=== PATIENT | female | born 1935 | race Caucasian/White ===

== ENCOUNTER 2016-02-28 09:22 | Emergency (ER) | payer MEDICARE ==
[~2016-02-28] VITALS: Ht 157.4 cm; Wt 108.9 kg
[~2016-02-28 09:22] MED LIST: AMBIEN10 MG PO; ATIVAN1 MG PO; AUGMENTIN 875875 MG PO; CALCIUM1 CAP PO; CELEXA10 MG PO; CIPRO250 MG PO; HYDR25T PO; IBU800 MG PO; LASIX40 MG PO; LIPITOR10 MG PO; PANTOPRAZOLE SO40 MG PO; POTASSIUM CHLO10 ME4 PO; PROTONIX40 MG PO; QUINAPRIL10 MG PO; TRAMADOL HCL50 MG PO; TYLENOL325 M2 PO; ULTRAM50 MG PO; VICODIN ES 7501 TAB PO; VITAMIN D5000 IU PO; Vicodin 5/500 505 MG PO; XARE20MG PO; ZESTRIL40 MG PO; ZITHROMAX Z PA250 MG PO; ZOFRAN ODT4 MG SL
[2016-02-28 10:11] LABS: BASO % 0.2 % (0.0-1.0); EOS # 0.2 10*3/uL (0.0-0.4); EOS % 3.2 % (1.0-4.0); HEMATOCRIT 31.3 % (37.0-47.0); HEMOGLOBIN 9.9 g/dl (12.0-16.0); LYMPH # 1.4 10*3/uL (1.3-4.4); MEAN CELL VOLUME 99.4 fl (81.0-99.0); MEAN CORPUSCULAR HGB 31.4 pg (27.0-31.0); MEAN CORPUSCULAR HGB CONC 31.6 g/dl (33.0-37.0); MEAN PLATELET VOLUME 8.7 fl (9.6-12.3); MONO # 0.5 10*3/uL (0.1-1.0); MONO % 8.2 % (3.0-9.0); NEUT # 3.8 10*3/uL (2.3-7.9); NEUT % 65.1 % (47.0-73.0); PLATELET COUNT AUTOMATED 200 10*3/uL (130-400); RED BLOOD COUNT 3.15 10*6/uL (4.10-5.10); RED CELL DISTRI WIDTH 14.2 % (0-14.5); WHITE BLOOD COUNT 5.9 10*3/uL (4.8-10.8)
[2016-02-28 10:25] LABS: POTASSIUM 4.7 mmol/L (3.5-5.1)
[2016-02-28 10:30] VITALS: BP 122/71
[2016-02-28] MEDS ORDERED: PROVENTIL0.09 MG/A1 INH (11:20)
[2016-02-28] MEDS ORDERED: ZITHROMAX250 MG PO (11:20)
[2016-02-28] MEDS ORDERED: ROBITUSSIN AC 110 ML PO (11:20)
== END 2016-02-28 11:27 | disposition home or self-care (01) ==
LOC: ED 09:22
PROVIDERS: Emergency Medicine
DX: J40 Bronchitis, not specified as acute or chronic (principal); M19.90 Unspecified osteoarthritis, unspecified site; Z90.49 Acquired absence of other specified parts of digestive tract; F41.9 Anxiety disorder, unspecified; I10 Essential (primary) hypertension; I50.9 Heart failure, unspecified; Z88.8 Allergy status to other drugs, medicaments and biological substances; Z87.891 Personal history of nicotine dependence; Z86.718 Personal history of other venous thrombosis and embolism

== ENCOUNTER 2016-10-29 13:09 | Inpatient (IN) | payer MEDICARE ==
[2016-10-29] VITALS (7 sets, daily range): BP systolic 84–153; BP diastolic 40–60
[~2016-10-29] VITALS: Ht 157.4 cm; Wt 101.8 kg
--- NOTE | ~2016-10-29 | CON ---
[place], [place] REPORT OF CONSULTATION NAME: [facility]AGA [id number] UNIT #: [id number] ROOM: 504 DOCTOR: BRETT FRAGARYLIECHARLOTTE BIRTHDATE: [birth year] DOS: GASTROENDOSCOPIC REPORT HISTORY OF PRESENT ILLNESS: An 81-year-old patient who has presented with chief complaint of not feeling well and being tired. She was admitted and she was found to have H and H of 10 and 33. She has been on Xarelto at home for DVT history. She had a chest x-ray, was normal. Comprehensive metabolic panel: BUN and creatinine of 30 and 1.4, GFR was 42. Electrolytes balanced. Liver function tests normal. Troponin within normal limit. Lactic acid 1.2, normal. Urinalysis, no activity was seen. She had a CT scan of the abdomen and pelvic done, stable postsurgical changes for colonic carcinoma without any acute findings, questionable wall thickening of the distal rectum posteriorly may correlate with rectal bleeding that she is expressing. No evidence of diverticulitis, small fat containing hiatal hernia noticed. PAST MEDICAL HISTORY: Associated with DVT, colonic CA, congestive heart failure, anxiety, DJD, obesity, hypertension, osteoarthritis. PAST SURGICAL HISTORY: Colon resection for history of colonic carcinoma. No chemo, no radiation history, cholecystectomy, tonsillectomy, adenoidectomy. SOCIAL HISTORY: Nonsmoker, nonalcohol consumer. FAMILY HISTORY: Noncontributory. ALLERGIES: METHYLPREDNISOLONE. MEDICATIONS: List has been reviewed. Xarelto was included that is on hold. REVIEW OF SYSTEMS: HEENT: Denies double vision, blurred vision. RESPIRATORY: Denies shortness of breath. CARDIOVASCULAR: Denies chest pain. DIGESTIVE SYSTEM: Colonic CA history and rectal bleed, now abnormal CT scan with the rectal thickening, concern. PHYSICAL EXAMINATION: VITAL SIGNS: Stable. HEENT: Head normocephalic, nontraumatic. Mouth and buccal mucosa benign. NECK: Supple, no thyromegaly, no cervical lymphadenopathy. CHEST: Symmetric anatomy, equal expansion. No wheeze, no rhonchi. HEART: Normal sinus rhythm, no gallop, no murmur. ABDOMEN: Obese, large, soft. No hepato-organomegaly. Bowel sounds present. EXTREMITIES: No cyanosis, no pedal edema. NEUROLOGIC: Alert, oriented to time, place and person. IMPRESSION: Blood in stool and episode of irregularity of bowel movement, hypotension. After evaluation with old history of hypertension, history of congestive heart failure, degenerative joint disease, borderline anemia, colonic [place], [place] REPORT OF CONSULTATION NAME: OSCAR ARTEAGA UNIT #: [id number] ROOM: [facility] DOCTOR: CORI WEST MD BIRTHDATE: [birth year] CA history without chemoradiation therapy. We are following up on and , tomorrow morning preps if vital signs stable and colonoscopy, EGD on Monday. OTHER ADJUNCTIVE DIAGNOSES: As outlined in paragraph past medical, surgical history. CORI WEST MD CM:CONSTR:REPORT OF CONSULTATION 1558 10/31/16 1933 interface
--- NOTE | ~2016-10-29 | O ---
[place], [place] OPERATIVE NOTE NAME: [id number] UNIT #: [id number] ROOM: 504 DOCTOR: CORI WEST MD BIRTHDATE: [birth year] DOS: GASTROENDOSCOPIC REPORT. HISTORY OF PRESENT ILLNESS: An 81-year-old patient who has presented with chief complaint of anemia, undergoing investigation. INDICATIONS: The patient with rectal bleed. The patient with history of colonic polyp carcinoma status post resection. PAST SURGICAL HISTORY: Cholecystectomy, tonsillectomy. SOCIAL HISTORY: Nonsmoker, nonalcohol consumer. She has stopped smoking. PAST MEDICAL HISTORY: Diastolic congestive heart failure, colon CA, hypertension, hypoglycemia, degenerative joint disease, anxiety. ALLERGIES: METHYLPREDNISOLONE. PROCEDURE: Today's procedure part of investigation is EGD and colonoscopy. PREMEDICATION: Versed and Diprivan. SCOPE: Olympus forward-viewing colonoscope 10L video. REPORT: After putting the patient in the left lateral position and after application of lubricant to the scope, the scope was introduced; thereafter, under direct visualization, advanced through the length of colon without difficulty. Base of the cecum explored. Evidence of surgical resection in this area was noticed. Suture lines were defined and photographed. No acute pathology in this area, no infiltration was noticed. Air was suctioned out, diverticulosis in the left side of the colon and scatteredly throughout the colon was documented. The patient tolerated the procedure well. Small hemorrhoids noticed. IMPRESSION: Small hemorrhoids, internal; diverticulosis and status post segmental resection of ascending colon at the cecal level with no infiltration. PLAN AND DISCUSSION: I am going to proceed with panendoscopy. [place], [place] OPERATIVE NOTE NAME: OSCAR ARTEAGA UNIT #: [id number] ROOM: 504 DOCTOR: CORI WEST MD BIRTHDATE: [birth year] CORI WEST MD CM:OPRECORD:OPERATIVE NOTE 1407 1433 CORI WEST MD 11/02/16 1933 interface
--- NOTE | ~2016-10-29 | O ---
[place], [place] OPERATIVE NOTE [id number] #: [id number] ROOM: 504 DOCTOR: CORI WEST MD BIRTHDATE: [birth year] DOS: 11/02/2016 GASTROENDOSCOPY REPORT. PROCEDURE: Today's procedure part of investigation of GI bleed is panendoscopy. PREMEDICATION: Versed and Diprivan. SCOPE: Olympus forward-viewing gastroscope Q10 video. REPORT: After putting the patient in the left lateral position and after application of lubricant to the scope, the scope was introduced. Thereafter, under direct visualization, I advanced through the length of the esophagus without difficulty. Hiatal hernia, small in size, approximately 2 cm was noticed. Gastritis of mild degree was seen; however, some degraded blood in the stomach was noticed. Duodenal bulb, second and third part within normal limit. The patient was gradually extubated and tolerated procedure well. IMPRESSION: Hiatal hernia, gastritis. PLAN AND DISCUSSION: Protonix 40 mg daily. Supportive management, otherwise regular diet. ACTIVITY: Ad don. CORI WEST MD CM:OPRECORD:OPERATIVE NOTE 1407 1441 CORI WEST MD 11/03/16 0617 interface
[~2016-10-29 13:09] MED LIST changes: +PROVENTIL0.09 MG/A1 INH; +ROBITUSSIN AC 110 ML PO; +ZITHROMAX250 MG PO
[2016-10-29 14:10] LABS: BASO % 0.2 % (0.0-1.0); EOS % 0.2 % (1.0-4.0); HEMATOCRIT 33.5 % (37.0-47.0); HEMOGLOBIN 10.8 g/dl (12.0-16.0); LYMPH # 2.1 10*3/uL (1.3-4.4); LYMPH % 26.1 % (27.0-41.0); MEAN CELL VOLUME 94.6 fl (81.0-99.0); MEAN CORPUSCULAR HGB 30.5 pg (27.0-31.0); MEAN CORPUSCULAR HGB CONC 32.2 g/dl (33.0-37.0); MEAN PLATELET VOLUME 9.3 fl (9.6-12.3); MONO # 0.5 10*3/uL (0.1-1.0); MONO % 5.7 % (3.0-9.0); NEUT # 5.4 10*3/uL (2.3-7.9); NEUT % 67.1 % (47.0-73.0); PLATELET COUNT AUTOMATED 268 10*3/uL (130-400); RED BLOOD COUNT 3.54 10*6/uL (4.10-5.10); RED CELL DISTRI WIDTH 13.2 % (0-14.5); WHITE BLOOD COUNT 8.1 10*3/uL (4.8-10.8)
[2016-10-29 14:14] LABS: BILIRUBIN NEGATIVE (NEGATIVE); BLOOD TRACE-INTACT (NEGATIVE); CLARITY CLEAR (CLEAR); COLOR YELLOW (YELLOW); GLUCOSE NEGATIVE (NEGATIVE); KETONE NEGATIVE (NEGATIVE); LEUKO ESTERASE 1+ (NEGATIVE); NITRITE NEGATIVE (NEGATIVE); SPECIFIC GRAVITY 1.015 (1.005-1.030); UROBILINOGEN 0.2 E.U./dl (0.2-1.0)
[2016-10-29 14:23] LABS: ALBUMIN 3.8 gm/dl (3.1-4.5); ALKALINE PHOSPHATASE 101 U/L (45-117); BUN 30 mg/dl (7-24); CHLORIDE 107 mmol/L (98-107); CREATININE 1.43 mg/dL (0.55-1.02); POTASSIUM 4.6 mmol/L (3.5-5.1); SGOT/AST 18 IU/L (3-35); SGPT/ALT 15 U/L (12-78); SODIUM 139 mmol/L (136-145); TOTAL PROTEIN 8.1 gm/dL (6.4-8.2)
[2016-10-29 14:27] LABS: TROPONIN I < 0.015 ng/ml (<0.045)
[2016-10-29 14:28] LABS: BACTERIA 1+; RBC 0-2 rbc/hpf (0-2)
--- NOTE | 2016-10-29 14:48 | NUR ---
AUTOMATIC BP READING LOW, MANUAL BP CHECKED AND DR. BENITEZ MADE AWARE.
--- NOTE | 2016-10-29 15:00 | NUR ---
IV FLUID BOLUS INFUSING.
--- NOTE | 2016-10-29 16:20 | NUR ---
A 81, admitted to , under the services of CARLITOS Gonzalez DO with a diagnosis of HYPOTENSION DEHYDRATION. Chief complaint is HYPOTENSION DEHYDRATION. Patient arrived via bed from ER. Monitor applied. Initial assessment completed. Vital signs taken and recorded. CARLITOS GONZALEZ DO notified of admission to the unit. Orders received. See assessment for past medical history, medications and allergies. Patient and/or family oriented to unit. [facility]. Clothing/patient valuable form completed. OKSANA DEAL
[2016-10-29] MEDS ORDERED: LORAZEPAM0.5 MG PO (17:29)
[2016-10-29] MEDS ORDERED: LASIX40 MG PO (17:29)
[2016-10-29] MEDS ORDERED: SEROQUEL50 MG PO (17:29)
[2016-10-29] MEDS ORDERED: AMBIEN5 MG PO (17:29)
--- NOTE | 2016-10-29 17:30 | NUR ---
MED REC VERIFIED WITH SARAH FROM [facility]
--- NOTE | 2016-10-29 17:36 | NUR ---
NOTIFIED OF CONSULT, NEW ORDERS RECIEVED AND REPEATED BACK TO FOR VERIFICATION
--- NOTE | 2016-10-29 23:38 | NUR ---
C/O BACK PAIN FROM BED. TYLENOL GIVEN PER ORDER FOR PAIN.
[2016-10-30] VITALS: BP 143/59
--- NOTE | 2016-10-30 00:30 | NUR ---
PER PT. TYLENOL BECOMING EFFECTIVE FOR BACK PAIN.
[2016-10-30 06:38] LABS: BASO % 0.2 % (0.0-1.0); EOS # 0.1 10*3/uL (0.0-0.4); HEMATOCRIT 29.1 % (37.0-47.0); HEMOGLOBIN 9.3 g/dl (12.0-16.0); LYMPH # 2.5 10*3/uL (1.3-4.4); LYMPH % 30.2 % (27.0-41.0); MEAN CELL VOLUME 95.4 fl (81.0-99.0); MEAN CORPUSCULAR HGB 30.5 pg (27.0-31.0); MEAN PLATELET VOLUME 9.5 fl (9.6-12.3); MONO # 0.6 10*3/uL (0.1-1.0); MONO % 6.6 % (3.0-9.0); NEUT # 5.2 10*3/uL (2.3-7.9); NEUT % 61.8 % (47.0-73.0); PLATELET COUNT AUTOMATED 240 10*3/uL (130-400); RED BLOOD COUNT 3.05 10*6/uL (4.10-5.10); RED CELL DISTRI WIDTH 13.4 % (0-14.5); WHITE BLOOD COUNT 8.4 10*3/uL (4.8-10.8)
[2016-10-30 07:09] LABS: ALBUMIN 3.2 gm/dl (3.1-4.5); CREATININE 1.11 mg/dL (0.55-1.02); MAGNESIUM 1.6 mg/dL (1.5-2.1); PHOSPHOROUS 3.2 mg/dL (2.5-4.9); POTASSIUM 4.2 mmol/L (3.5-5.1)
[2016-10-30 07:16] LABS: VITAMIN D, 25-HYDROXY 21.9 ng/mL (30-100)
[2016-10-30 07:19] LABS: THYROID STIM HORMONE (HS) 0.509 uIU/ml (0.358-4.75)
[2016-10-30 07:35] VITALS: BP 143/70
--- NOTE | 2016-10-30 09:09 | NUR ---
PT REQUESTED AND RECEIVED PO ATIVAN PER PRN ORDER FOR C/O ANXIETY. WILL MONITOR EFFECTIVENESS. VSS. CALL LIGHT WITHIN REACH.
--- NOTE | 2016-10-30 10:15 | NUR ---
ATIVAN EFFECTIVE PER PT. WILL CONTINUE TO MONITOR.
--- NOTE | 2016-10-30 10:37 | NUR ---
NOTIFIED REGARDING HGB/HCT RESULTS FROM TODAY.
[2016-10-30 11:41] VITALS: BP 116/70
[2016-10-30 16:00] VITALS: BP 125/57
--- NOTE | 2016-10-30 16:16 | NUR ---
NOTIFIED REGARDING PATIENT C/O SORE THROAT. NEW ORDERS TO BE ENTERED PER PHYSICIAN.
--- NOTE | 2016-10-30 16:35 | NUR ---
PT GIVEN PO TYLENOL AND CEPACOL PER PRN ORDER FOR C/O KAUFFMAN AND SORE THROAT. WILL MONITOR EFFECTIVENESS.
--- NOTE | 2016-10-30 17:46 | NUR ---
EARLIER MEDS EFFECTIVE PER PT. WILL CONTINUE TO MONITOR.
[2016-10-30 20:00] VITALS: BP 112/67
--- NOTE | 2016-10-30 20:37 | NUR ---
TYLENOL GIVEN PER ORDER FOR BACK PAIN PER PT. RATED " 5" SEE MAR.
--- NOTE | 2016-10-30 21:30 | NUR ---
TYLENOL EFFECTIVE FOR BACK PAIN PER PT.
[2016-10-31] VITALS: BP 120/41
--- NOTE | 2016-10-31 04:58 | NUR ---
VICODIN GIVEN PER ORDER FOR BACK PAIN RATED "6". SEE MAR
--- NOTE | 2016-10-31 05:50 | NUR ---
NORCO EFFECTIVE FOR BACK PAIN PER PT.
[2016-10-31 06:35] LABS: BASO % 0.3 % (0.0-1.0); EOS # 0.1 10*3/uL (0.0-0.4); EOS % 1.6 % (1.0-4.0); HEMATOCRIT 29.7 % (37.0-47.0); HEMOGLOBIN 9.4 g/dl (12.0-16.0); LYMPH # 2.6 10*3/uL (1.3-4.4); LYMPH % 32.5 % (27.0-41.0); MEAN CORPUSCULAR HGB CONC 31.6 g/dl (33.0-37.0); MEAN PLATELET VOLUME 9.7 fl (9.6-12.3); MONO # 0.5 10*3/uL (0.1-1.0); MONO % 6.6 % (3.0-9.0); NEUT # 4.6 10*3/uL (2.3-7.9); NEUT % 58.5 % (47.0-73.0); PLATELET COUNT AUTOMATED 244 10*3/uL (130-400); RED BLOOD COUNT 3.03 10*6/uL (4.10-5.10); RED CELL DISTRI WIDTH 13.6 % (0-14.5); WHITE BLOOD COUNT 7.9 10*3/uL (4.8-10.8)
[2016-10-31 07:02] LABS: ALBUMIN 3.1 gm/dl (3.1-4.5); CREATININE 1.24 mg/dL (0.55-1.02); MAGNESIUM 1.6 mg/dL (1.5-2.1); POTASSIUM 4.2 mmol/L (3.5-5.1); TOTAL PROTEIN 6.8 gm/dL (6.4-8.2)
[2016-10-31 08:00] VITALS: BP 144/52
[2016-10-31 12:00] VITALS: BP 136/72
--- NOTE | 2016-10-31 13:06 | NUR ---
DR. WEST CALLED WITH CT RESULTS AND WILL BE IN LATER TO SEE PATIENT.
--- NOTE | 2016-10-31 14:59 | NUR ---
medicated with norco for left leg pain of 8/10.
--- NOTE | 2016-10-31 15:31 | NUR ---
PT RESTING IN BED, NO DISTRESS NOTED,. PT STATES THAT NORCO HELPED. WILL MONITOR
[2016-10-31 16:00] VITALS: BP 136/98
[2016-10-31 20:00] VITALS: BP 134/57
--- NOTE | 2016-10-31 21:09 | NUR ---
PATIENT GIVEN ATIVAN FOR ANXIOUSNESS NORCO FOR BACK PAIN AND SORE THROAT PATIENT WAS ALSO GIVEN CEPACOL TO HELP SORE THROAT.
--- NOTE | 2016-10-31 22:14 | NUR ---
PATIENT STATED THAT BACK PAIN HAS IMPRPOVED BUT PATIENT STATES THAT SHE FEELS LESS ANXIOUS ALSO.
[2016-11-01] VITALS: BP 96/42
--- NOTE | 2016-11-01 01:30 | NUR ---
PATIENT REQUESTED PAIN MEDICATIOON FOR BACK PAIN OF 8/10. PAIN MEDICATION GIVEN PER PRN ORDER.
--- NOTE | 2016-11-01 02:15 | NUR ---
PAIN MEDICATION APPEARS TO BE EFFECTIVE, PATIENT RESTING IN BED WITH EYES CLOSED.
--- NOTE | 2016-11-01 03:38 | NUR ---
PATIENT LYING IN BED EYES CLOSED, APPEARS TO BE RESTING COMFORTABLY. NO S/S OF DISTRESS.
[2016-11-01 04:00] VITALS: BP 102/58
[2016-11-01 06:52] LABS: BASO % 0.3 % (0.0-1.0); EOS # 0.2 10*3/uL (0.0-0.4); HEMATOCRIT 29.9 % (37.0-47.0); HEMOGLOBIN 9.3 g/dl (12.0-16.0); LYMPH # 3.1 10*3/uL (1.3-4.4); LYMPH % 39.2 % (27.0-41.0); MEAN CELL VOLUME 97.4 fl (81.0-99.0); MEAN CORPUSCULAR HGB 30.3 pg (27.0-31.0); MEAN CORPUSCULAR HGB CONC 31.1 g/dl (33.0-37.0); MEAN PLATELET VOLUME 9.5 fl (9.6-12.3); MONO # 0.5 10*3/uL (0.1-1.0); MONO % 5.9 % (3.0-9.0); NEUT # 4.1 10*3/uL (2.3-7.9); NEUT % 51.2 % (47.0-73.0); PLATELET COUNT AUTOMATED 230 10*3/uL (130-400); RED BLOOD COUNT 3.07 10*6/uL (4.10-5.10); RED CELL DISTRI WIDTH 13.6 % (0-14.5); WHITE BLOOD COUNT 7.9 10*3/uL (4.8-10.8)
[2016-11-01 07:15] LABS: CREATININE 1.14 mg/dL (0.55-1.02); POTASSIUM 4.8 mmol/L (3.5-5.1)
[2016-11-01 08:00] VITALS: BP 139/63
--- NOTE | 2016-11-01 08:30 | NUR ---
Intake Coordinator in to talk to patient. Patient states lives at [facility] AT [facility] with . There are 0 steps in the home. Physician: DR CHRISTY Pharmacy: [facility] Home health services: NONE Patient's level of ADLs: MINIMAL ASSIST Patient has working utilities: YES DME: NONE Follow-up physician's appointment after d/c: WILL BE MADE PRIOR TO DC Does patient want to access PORTAL?: Discharge plan HOME. LETHA LEE
--- NOTE | 2016-11-01 10:23 | NUR ---
PATIENT COMPLAINS OF PAIN IN LEFT HIP, PRN NORCO GIVEN. SCHEDULED ULTRAM FOR GENERALIZED ARTHRITIC PAIN. WILL MONITOR FOR EFFECTIVENESS. PT STATES NO OTHER NEEDS AT THIS TIME.
--- NOTE | 2016-11-01 11:30 | NUR ---
PT STATES NORCO/ULTRAM EFFECTIVE FOR PAIN.
[2016-11-01 12:00] VITALS: BP 133/54
--- NOTE | 2016-11-01 12:03 | NUR ---
PHYSICAL THERAPY PATIENT EVALUATED ON 5, FULL EVALUATION TO FOLLOW. CONTINUE WTH PT PER PLAM OF CARE WITH FALL AND ACUTE DEBILITY PRECAUTIONS. WILL REQUIRE HOME HEALTH RN AND PT. PATIENT IS MODRATE COMPLEXITY VIA CHART REVIEW, TESTS AND EVALATUION: [id number]. THANK YOU FOR THIS REFERRAL. ROBERT LEMON ,PT
[2016-11-01 16:00] VITALS: BP 141/51
--- NOTE | 2016-11-01 17:42 | NUR ---
PT UNDERSTANDS MIRALAX PREP INSTRUCTIONS. NO NEEDS AT THIS TIME
--- NOTE | 2016-11-01 19:40 | NUR ---
PATIENT RESTING OOB IN CHAIR. SHE IS DOING WELL WITH THE PREP FOR HER PROCEDURE TOMORROW BUT STATES IT IS STARTING TO MAKE HER NAUSEOUS. SHE IS PLEASANT/COOPERATIVE WITH CARE. SHE HAS NO COMPLAINTS AT THIS TIME. NO SXS OF DISTRESS. RESPIRATIONS EASY/REGULAR. CALL LIGHT IS IN REACH.
[2016-11-01 20:00] VITALS: BP 163/53
--- NOTE | 2016-11-01 21:44 | NUR ---
PATIENT REQUESTED AND RECEIVED PRN NORCO FOR C/O OF BACK AND HIP PAIN RATED A 7. WILL FOLLOW UP EFFECTIVENESS. ALSO MEDICATED WITH PRN ZOFRAN ORDERED FOR C/O NAUSEA R/T THE COLO PREP.
--- NOTE | 2016-11-01 22:04 | NUR ---
PATIENT REQUESTED AND RECEIVED PRN ATIVAN ORDERED FOR C/O OF ANXIETY. STATES SHE IS GETTING HERSELF WORKED UP ABOUT HER EGD/COLO TOMORROW MORNING.
[2016-11-02] VITALS (8 sets, daily range): BP systolic 121–140; BP diastolic 43–72
--- NOTE | 2016-11-02 01:28 | NUR ---
SLEEPING. CALL LIGHT IN REACH.
--- NOTE | 2016-11-02 03:45 | NUR ---
SLEEPING OOB IN CHAIR. RESPIRATIONS EASY/REGULAR. NO SXS OF DISTRESS. CALL LIGHT IS IN REACH.
[2016-11-02 06:12] LABS: BASO % 0.2 % (0.0-1.0); EOS # 0.2 10*3/uL (0.0-0.4); EOS % 2.3 % (1.0-4.0); HEMATOCRIT 30.7 % (37.0-47.0); HEMOGLOBIN 9.7 g/dl (12.0-16.0); LYMPH # 3.5 10*3/uL (1.3-4.4); MEAN CELL VOLUME 98.7 fl (81.0-99.0); MEAN CORPUSCULAR HGB 31.2 pg (27.0-31.0); MEAN CORPUSCULAR HGB CONC 31.6 g/dl (33.0-37.0); MEAN PLATELET VOLUME 9.3 fl (9.6-12.3); MONO # 0.6 10*3/uL (0.1-1.0); NEUT # 4.9 10*3/uL (2.3-7.9); NEUT % 53.1 % (47.0-73.0); PLATELET COUNT AUTOMATED 236 10*3/uL (130-400); RED BLOOD COUNT 3.11 10*6/uL (4.10-5.10); RED CELL DISTRI WIDTH 13.6 % (0-14.5); WHITE BLOOD COUNT 9.3 10*3/uL (4.8-10.8)
--- NOTE | 2016-11-02 06:24 | NUR ---
PATIENT PREPED WITH FLEET ENEMA X1 AND 1 TAP WATER ENEMA AND SHE IS DRANIING CLEAR.
[2016-11-02 06:47] LABS: ALBUMIN 3.2 gm/dl (3.1-4.5); CREATININE 1.4 mg/dL (0.55-1.02); MAGNESIUM 1.6 mg/dL (1.5-2.1); POTASSIUM 5.3 mmol/L (3.5-5.1); TOTAL PROTEIN 7.2 gm/dL (6.4-8.2)
--- NOTE | 2016-11-02 10:49 | NUR ---
PHYSICAL THERAPY Radha seen this AM 1:1 for her therapy treatment. All transfers were independent. Gait total 190' X 1, with wheeled walker and CG X 1, no LOB and little verbal cueing for gait, walker safety. End with act Ex to bilateral LE of marching, LAQ's, and ankle pumps X 20 reps each with cueing for each Ex and did very well, Pt back supine in bed, treatment time 24 min. ANT [place] [employer] TRAFF[employer] CHIEF.
--- NOTE | 2016-11-02 17:16 | NUR ---
PATIENT LEFT WITH HER DAUGHTER HEP ;OCK REMOVED DISCHARGE INSTRUCTIONS GIVEN
--- NOTE | 2016-11-03 08:07 | NUR ---
PHYSICAL THERAPY CO-SIGN I approve of the Phyical Therapy notes written above. ROBERT LEMON PT
== END 2016-11-02 17:16 | disposition home or self-care (01) | DRG 314 ==
LOC: ED 13:09 → EDHOLD 15:42 → 5E 15:42
PROVIDERS: Emergency Medicine; Family Medicine; Internal Medicine Gastroenterology; ADMIT Internal Medicine
PROC: 0DJD8ZZ Inspection of Lower Intestinal Tract, Via Natural or Artificial Opening Endoscopic (ICD-10-PCS; principal; 2016-10-29)
PROC: 0DB68ZX Excision of Stomach, Via Natural or Artificial Opening Endoscopic, Diagnostic (ICD-10-PCS; principal; 2016-10-29)
DX: I95.9 Hypotension, unspecified (principal); N17.0 Acute kidney failure with tubular necrosis; K62.5 Hemorrhage of anus and rectum; I50.32 Chronic diastolic (congestive) heart failure; I11.0 Hypertensive heart disease with heart failure; E86.0 Dehydration; R19.7 Diarrhea, unspecified; F41.9 Anxiety disorder, unspecified; M19.90 Unspecified osteoarthritis, unspecified site; K29.70 Gastritis, unspecified, without bleeding; K57.30 Diverticulosis of large intestine without perforation or abscess without bleeding; K44.9 Diaphragmatic hernia without obstruction or gangrene; M16.12 Unilateral primary osteoarthritis, left hip; D64.9 Anemia, unspecified; K64.8 Other hemorrhoids; E55.9 Vitamin D deficiency, unspecified; Z85.038 Personal history of other malignant neoplasm of large intestine; Z88.8 Allergy status to other drugs, medicaments and biological substances; Z79.899 Other long term (current) drug therapy; Z86.718 Personal history of other venous thrombosis and embolism; Z90.49 Acquired absence of other specified parts of digestive tract; Z82.49 Family history of ischemic heart disease and other diseases of the circulatory system; Z87.891 Personal history of nicotine dependence

== ENCOUNTER → 2016-12-06 | Outpatient (CLI) | payer MEDICARE ==
[~2016-12-06] MED LIST changes: +AMBIEN5 MG PO; +LORAZEPAM0.5 MG PO; +SEROQUEL50 MG PO
== END | disposition home or self-care (01) ==
LOC: US 12:23
DX: I82.431 Acute embolism and thrombosis of right popliteal vein (principal); M71.21 Synovial cyst of popliteal space [Baker], right knee

== ENCOUNTER → 2016-12-13 | Outpatient (CLI) | payer MEDICARE ==
[2016-12-14 20:10] LABS: AMPHETAMINE, URINE Negative ng/mL (Cutoff=1000); BARBITURATE, URINE Negative ng/mL (Cutoff=200); CANNABINOID, URINE Negative ng/mL (Cutoff=20); CREATININE, UR 28.8 mg/dL (20.0-300.0); PH URINE 5.4 (4.5-8.9)
== END | disposition home or self-care (01) ==
LOC: LAB 10:09
DX: Z02.9 Encounter for administrative examinations, unspecified (principal)

== ENCOUNTER 2016-12-24 10:23 | Inpatient (IN) | payer MEDICARE ==
[~2016-12-24] VITALS: Ht 157.4 cm; Wt 103.9 kg
[2016-12-24] VITALS (7 sets, daily range): BP systolic 140–194; BP diastolic 46–96
[2016-12-24 10:47] LABS: BASO % 0.1 % (0.0-1.0); EOS % 0.5 % (1.0-4.0); HEMATOCRIT 31.5 % (37.0-47.0); HEMOGLOBIN 10.1 g/dl (12.0-16.0); LYMPH # 1.6 10*3/uL (1.3-4.4); LYMPH % 18.1 % (27.0-41.0); MEAN CELL VOLUME 96.6 fl (81.0-99.0); MEAN CORPUSCULAR HGB CONC 32.1 g/dl (33.0-37.0); MEAN PLATELET VOLUME 8.9 fl (9.6-12.3); MONO # 0.5 10*3/uL (0.1-1.0); MONO % 5.3 % (3.0-9.0); NEUT # 6.6 10*3/uL (2.3-7.9); NEUT % 75.4 % (47.0-73.0); PLATELET COUNT AUTOMATED 265 10*3/uL (130-400); RED BLOOD COUNT 3.26 10*6/uL (4.10-5.10); RED CELL DISTRI WIDTH 14.3 % (0-14.5); WHITE BLOOD COUNT 8.7 10*3/uL (4.8-10.8)
[2016-12-24 10:55] LABS: ACT PARTIAL THROMBO TIME 28.8 SECONDS (20.8-31.5); INTERNATIONAL NORM RATIO 1.2 (2.0-3.5)
[2016-12-24 11:06] LABS: ALBUMIN 3.6 gm/dl (3.1-4.5); ALKALINE PHOSPHATASE 85 U/L (45-117); BUN 27 mg/dl (7-24); CHLORIDE 107 mmol/L (98-107); CREATININE 1.08 mg/dL (0.55-1.02); POTASSIUM 4.3 mmol/L (3.5-5.1); SGOT/AST 9 IU/L (3-35); SGPT/ALT 14 U/L (12-78); SODIUM 140 mmol/L (136-145)
[2016-12-24 11:13] LABS: TROPONIN I < 0.015 ng/ml (<0.045)
[2016-12-24] MEDS ORDERED: LIPITOR10 MG PO (14:16)
[2016-12-24] MEDS ORDERED: PRILOSEC20 M1 PO (14:16)
[2016-12-24] MEDS ORDERED: HYDR25T PO (14:16)
[2016-12-25] VITALS: BP 154/56
[2016-12-25 06:27] LABS: BASO % 0.1 % (0.0-1.0); HEMATOCRIT 29.5 % (37.0-47.0); HEMOGLOBIN 9.6 g/dl (12.0-16.0); LYMPH # 1.4 10*3/uL (1.3-4.4); LYMPH % 16.8 % (27.0-41.0); MEAN CELL VOLUME 96.4 fl (81.0-99.0); MEAN CORPUSCULAR HGB 31.4 pg (27.0-31.0); MEAN CORPUSCULAR HGB CONC 32.5 g/dl (33.0-37.0); MEAN PLATELET VOLUME 9.7 fl (9.6-12.3); MONO # 0.5 10*3/uL (0.1-1.0); MONO % 5.8 % (3.0-9.0); NEUT # 6.4 10*3/uL (2.3-7.9); NEUT % 76.8 % (47.0-73.0); PLATELET COUNT AUTOMATED 269 10*3/uL (130-400); RED BLOOD COUNT 3.06 10*6/uL (4.10-5.10); RED CELL DISTRI WIDTH 14.2 % (0-14.5); WHITE BLOOD COUNT 8.3 10*3/uL (4.8-10.8)
[2016-12-25 06:59] LABS: ALBUMIN 3.6 gm/dl (3.1-4.5); ALKALINE PHOSPHATASE 73 U/L (45-117); BUN 35 mg/dl (7-24); CHLORIDE 108 mmol/L (98-107); CREATININE 1.01 mg/dL (0.55-1.02); POTASSIUM 4.6 mmol/L (3.5-5.1); SGOT/AST 13 IU/L (3-35); SGPT/ALT 14 U/L (12-78); SODIUM 141 mmol/L (136-145); TOTAL PROTEIN 7.3 gm/dL (6.4-8.2)
[2016-12-25 08:00] VITALS: BP 148/52
[2016-12-25 12:00] VITALS: BP 147/60
[2016-12-25 16:00] VITALS: BP 136/50
[2016-12-25 20:00] VITALS: BP 146/61
[2016-12-26] VITALS: BP 143/58
[2016-12-26 08:00] VITALS: BP 138/49
[2016-12-26] MEDS ORDERED: CITALOPRAM HYDR20 MG PO (11:30)
[2016-12-26] MEDS ORDERED: CELEXA20 MG PO (11:47)
[2016-12-26 12:00] VITALS: BP 129/47
== END 2016-12-26 15:00 | disposition home health service (06) | DRG 191 ==
LOC: ED 10:23 → EDHOLD 12:12 → 5E 12:12
PROVIDERS: Internal Medicine; Nurse Practitioner Family; ADMIT Internal Medicine
DX: J44.1 Chronic obstructive pulmonary disease with (acute) exacerbation (principal); R65.10 Systemic inflammatory response syndrome (SIRS) of non-infectious origin without acute organ dysfunction; I11.0 Hypertensive heart disease with heart failure; E66.01 Morbid (severe) obesity due to excess calories; I50.32 Chronic diastolic (congestive) heart failure; Z68.41 Body mass index [BMI] 40.0-44.9, adult; D64.9 Anemia, unspecified; F41.9 Anxiety disorder, unspecified; E55.9 Vitamin D deficiency, unspecified; Z60.2 Problems related to living alone; M16.12 Unilateral primary osteoarthritis, left hip; K57.90 Diverticulosis of intestine, part unspecified, without perforation or abscess without bleeding; Z88.8 Allergy status to other drugs, medicaments and biological substances; Z90.49 Acquired absence of other specified parts of digestive tract; Z87.891 Personal history of nicotine dependence; Z82.49 Family history of ischemic heart disease and other diseases of the circulatory system; Z86.718 Personal history of other venous thrombosis and embolism; Z85.038 Personal history of other malignant neoplasm of large intestine; Z79.899 Other long term (current) drug therapy

== ENCOUNTER 2017-05-08 14:06 | Emergency (ER) | payer MEDICARE ==
[~2017-05-08] VITALS: Ht 152.4 cm; Wt 90.7 kg
[~2017-05-08 14:06] MED LIST changes: +CELEXA20 MG PO; +CITALOPRAM HYDR20 MG PO; +PRILOSEC20 M1 PO
[2017-05-08 14:40] LABS: BASO % 0.2 % (0.0-1.0); EOS # 0.1 10*3/uL (0.0-0.4); EOS % 0.7 % (1.0-4.0); HEMATOCRIT 31.7 % (37.0-47.0); HEMOGLOBIN 10.2 g/dl (12.0-16.0); LYMPH # 2.2 10*3/uL (1.3-4.4); LYMPH % 27.3 % (27.0-41.0); MEAN CELL VOLUME 91.9 fl (81.0-99.0); MEAN CORPUSCULAR HGB 29.6 pg (27.0-31.0); MEAN CORPUSCULAR HGB CONC 32.2 g/dl (33.0-37.0); MEAN PLATELET VOLUME 9.1 fl (9.6-12.3); MONO # 0.6 10*3/uL (0.1-1.0); MONO % 7.9 % (3.0-9.0); NEUT # 5.1 10*3/uL (2.3-7.9); NEUT % 63.4 % (47.0-73.0); PLATELET COUNT AUTOMATED 246 10*3/uL (130-400); RED BLOOD COUNT 3.45 10*6/uL (4.10-5.10); RED CELL DISTRI WIDTH 14.5 % (0-14.5); WHITE BLOOD COUNT 8.1 10*3/uL (4.8-10.8)
[2017-05-08 14:56] LABS: ALBUMIN 3.5 gm/dl (3.1-4.5); ALKALINE PHOSPHATASE 77 U/L (45-117); BUN 19 mg/dl (7-24); CHLORIDE 105 mmol/L (98-107); CREATININE 0.85 mg/dL (0.55-1.02); POTASSIUM 3.8 mmol/L (3.5-5.1); SGOT/AST 12 IU/L (3-35); SGPT/ALT 13 U/L (12-78); SODIUM 138 mmol/L (136-145); TOTAL PROTEIN 6.9 gm/dL (6.4-8.2)
[2017-05-08 15:02] LABS: TROPONIN I < 0.015 ng/ml (<0.045)
[2017-05-08 15:09] LABS: BILIRUBIN NEGATIVE (NEGATIVE); BLOOD 2+ (NEGATIVE); CLARITY CLEAR (CLEAR); COLOR YELLOW (YELLOW); GLUCOSE NEGATIVE (NEGATIVE); KETONE NEGATIVE (NEGATIVE); LEUKO ESTERASE 1+ (NEGATIVE); NITRITE NEGATIVE (NEGATIVE); PH 5.5 (5.0-9.0); UROBILINOGEN 0.2 E.U./dl (0.2-1.0)
[2017-05-08 15:22] LABS: BACTERIA 1+; EPITHELIAL CELLS 20-25; WBC 21-30 wbc/hpf (0-5)
[2017-05-08 15:45] VITALS: BP 134/76
== END 2017-05-08 15:37 | disposition home or self-care (01) ==
LOC: ED 14:06
PROVIDERS: Emergency Medicine
DX: R53.83 Other fatigue (principal); F41.9 Anxiety disorder, unspecified; M13.852 Other specified arthritis, left hip; I11.0 Hypertensive heart disease with heart failure; I50.9 Heart failure, unspecified; E66.9 Obesity, unspecified; Z86.718 Personal history of other venous thrombosis and embolism; Z90.49 Acquired absence of other specified parts of digestive tract; Z98.890 Other specified postprocedural states; Z87.891 Personal history of nicotine dependence; Z79.899 Other long term (current) drug therapy; Z88.6 Allergy status to analgesic agent

== ENCOUNTER 2018-02-26 02:32 | Inpatient (IN) | payer MEDICARE ==
[2018-02-26] VITALS (8 sets, daily range): BP systolic 135–181; BP diastolic 55–98
[~2018-02-26] VITALS: Ht 154.9 cm; Wt 114.4 kg
--- NOTE | ~2018-02-26 | PR ---
[place], [place] PROGRESS NOTE NAME: OSCAR ARTEAGA UNIT #: [id number] ROOM: 411 DOCTOR: BALWINDER PRITCHETT MD BIRTHDATE: [birth year] DOS: 03/01/2018 SUBJECTIVE: The patient was seen at her bedside today 03/01/2018 for followup of nausea, vomiting, diarrhea and mild elevation in cardiac troponin. The patient tells me she feels tired today, but her nausea and vomiting have resolved. She has been ambulating with assistance and states that she is improving. I did review her echocardiogram which was done yesterday. It showed normal left ventricular size, wall motion and function with an estimated ejection fraction of 55-60% and stage 1 diastolic relaxation abnormalities, which are normal for her age. She had aortic sclerosis, but no other significant valve abnormalities and the aortic valve is functionally normal. PHYSICAL EXAMINATION: VITAL SIGNS: Today, her pulse is 70 and regular, blood pressure is 126/86. She is afebrile. NECK: Supple. She has no jugular distention. Carotids are full. LUNGS: Respirations are unlabored. Chest is clear. HEART: Has a regular rhythm. She has a fourth heart sound, but no third heart sound. ABDOMEN: Benign. EXTREMITIES: Showed no edema. LABORATORY DATA: Review of her troponin levels show that she had a persistent mild elevation in troponin, which is consistent with a type 2 myocardial injury, most likely from demand ischemia. She did not show a pattern that suggested an acute myocardial infarction or atherosclerotic disease. IMPRESSION: 1. Nausea, vomiting and diarrhea, possibly due to a viral gastroenteritis, resolving. 2. Hypertension. 3. Morbid obesity. 4. History of colon cancer. 5. Mild elevation in cardiac troponin, most likely due to demand ischemia. PLAN: No other cardiac workup is planned at this time and the patient may be discharged to home with continued risk factor modification per her primary physician. We will remain available to see her if needed. We thank the hospitalist physicians for asking our advice regarding her care. [place], [place] PROGRESS NOTE NAME: OSCAR ARTEAGA UNIT #: [id number] ROOM: 411 DOCTOR: BALWINDER PRITCHETT MD BIRTHDATE: [birth year] BALWINDER PRITCHETT MD CM:PNTRANS [id number] [id number] BALWINDER PRITCHETT MD 03/02/18 0541 interface
--- NOTE | ~2018-02-26 | EKG ---
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
--- NOTE | ~2018-02-26 | EKG ---
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
--- NOTE | ~2018-02-26 | EKG ---
[place], [place] ELECTROCARDIOGRAM REPORT NAME: OSCAR ARTEAGA UNIT #: [id number] ROOM: 411 DOCTOR: PANTERA DRAFT REPORT BIRTHDATE: [birth year] [facility] Test Date: 2018-02-26 Test Time: 08:41:09 Pat Name: OSCAR ARTEAGA Department: Room: 411 Gender: F E Learning Developer: МАРИЯ : 1935 Requested By: BAYRON EVANS Order Number: [id number] Reading MD: Levy Rodriguez MD Measurements Intervals [place] Rate: 88 P: 66 ME: 145 QRS: 7 QRSD: 81 T: 64 QT: 383 QTc: 464 Interpretive Statements Sinus rhythm Consider left atrial enlargement Electronically Signed On 03-01-2018 8:22:47 PST by Levy Rodriguez MD CM:EKGRPT:ELECTROCARDIOGRAM REPORT [id number] 0822 BAYRON HENDERSON DRAFT REPORT BAYRON EVANS DO
--- NOTE | ~2018-02-26 | CON ---
[place], [place] REPORT OF CONSULTATION [id number] UNIT #: [id number] ROOM: 411 DOCTOR: KANDACE MANUEL MD BIRTHDATE: [birth year] DOS: 02/27/2018 CARDIOLOGY CONSULTATION REASON FOR CONSULTATION: Elevated troponin and chest pain. HISTORY OF PRESENT ILLNESS: The patient is an 82-year-old patient with history of hypertension, colon cancer, anemia, non-morbid obesity, anxiety, presents to Emergency Room with complaining of nausea and vomiting as well as diarrhea. She has been having vomiting all day prior to admission, also had some lower abdominal pain and some diarrhea. The patient also was complaining of some chest tightness after her vomiting and there is no radiation. This pain lasts by a few seconds to a few minutes and relieves on its own. Denies any palpitation or dizziness. No PND, no orthopnea, no cough or hemoptysis, no fever and chills, no headache, no musculoskeletal symptoms, no urinary symptoms, no double vision or blurred vision. REVIEW OF SYSTEMS: Review of 10 system negative except as mentioned above. PAST MEDICAL HISTORY: Hypertension, morbid obesity, diastolic heart failure, depression, anxiety, hiatal hernia, history of colon cancer, anemia and osteoarthritis. PAST SURGICAL HISTORY: History of colon surgery, cholecystectomy and tonsillectomy. SOCIAL HISTORY: The patient in former smoker, quit long time ago. Does not drink alcohol or use illicit drugs. FAMILY HISTORY: Mother at age 93 from heart failure. Father as cause unknown. ALLERGIES: the patient is allergic to METHYLPREDNISONE. HOME MEDICATIONS: Reviewed. Pertinent medications include Lipitor 10 mg, lisinopril 40 mg and HCTZ 25 mg. PHYSICAL EXAMINATION: VITAL SIGNS: Blood pressure 162/84, pulse 89, respiratory rate 20. GENERAL: Alert, comfortable, in no acute distress. HEAD AND NECK: Neck is without significant carotid bruit. CHEST: The patient had mild tenderness on palpation on the chest wall. LUNGS: Clear to auscultation bilaterally. HEART: Regular rhythm, no S3. Grade 1/6 systolic murmur. ABDOMEN: Benign, obese, nontender. Bowel sounds normal. EXTREMITIES: Showed 1+ edema. Distal pulses palpable. SKIN: Warm and dry. No cyanosis, no clubbing. RECTAL: Deferred. GENITOURINARY: Deferred. NEUROLOGIC: The patient is alert and oriented. No focal neurologic deficit. [place], [place] REPORT OF CONSULTATION NAME: [facility]AGA [facility] [id number] UNIT #: [id number] ROOM: 411 DOCTOR: KANDACE MANUEL MD BIRTHDATE: [birth year] REVIEW OF THE DIAGNOSTIC TESTS: EKG showed sinus rhythm with nonspecific ST changes. CBC, chemistry reviewed. Cardiac troponins are 0.18 and 0.13. Hemoglobin 9.7, potassium 3.7, BUN 19, creatinine 0.85. IMPRESSION: 1. Borderline elevation of cardiac troponins, possibly demand ischemia with significant nausea and vomiting. 2. Nausea, vomiting and diarrhea. 3. Anemia. 4. Hypertension. 5. Morbid obesity. 6. History of colon cancer. RECOMMENDATIONS: 1. She denies any further chest pain. Her chest pain is more pleuritic and tender to touch. 2. Start aspirin 81 mg daily and also metoprolol 25 mg twice daily and monitor heart rate and blood pressure. 3. Check 2D echo for LV function and valvular function. 4. Based on her symptoms on 2D echo, consider Lexiscan stress test prior to discharge. 5. The patient to go home tomorrow if possible. 6. No family at bedside at the time of examination. KANDACE MANUEL MD CM:CONSTR:REPORT OF CONSULTATION 2153 04/10/18 0839 interface
[2018-02-26 02:58] LABS: BASO % 0.2 % (0.0-1.0); EOS # 0.1 10*3/uL (0.0-0.4); EOS % 0.5 % (1.0-4.0); HEMATOCRIT 34.4 % (37.0-47.0); HEMOGLOBIN 10.9 g/dl (12.0-16.0); LYMPH # 2.1 10*3/uL (1.3-4.4); LYMPH % 17.3 % (27.0-41.0); MEAN CELL VOLUME 93.7 fl (81.0-99.0); MEAN CORPUSCULAR HGB 29.7 pg (27.0-31.0); MEAN CORPUSCULAR HGB CONC 31.7 g/dl (33.0-37.0); MEAN PLATELET VOLUME 9.2 fl (9.6-12.3); MONO # 0.6 10*3/uL (0.1-1.0); NEUT # 9.4 10*3/uL (2.3-7.9); NEUT % 76.8 % (47.0-73.0); PLATELET COUNT AUTOMATED 258 10*3/uL (130-400); RED BLOOD COUNT 3.67 10*6/uL (4.10-5.10); RED CELL DISTRI WIDTH 14.6 % (0-14.5); WHITE BLOOD COUNT 12.2 10*3/uL (4.8-10.8)
[2018-02-26 03:08] LABS: ACT PARTIAL THROMBO TIME 23.8 SECONDS (20.8-31.5)
[2018-02-26 03:15] LABS: ALBUMIN 3.7 gm/dl (3.1-4.5); CREATININE 1.12 mg/dL (0.55-1.02); POTASSIUM 4.2 mmol/L (3.5-5.1); TOTAL PROTEIN 7.6 gm/dL (6.4-8.2)
[2018-02-26 03:21] LABS: TROPONIN I 0.118 ng/ml (<0.045)
--- NOTE | 2018-02-26 03:22 | NUR ---
TROPONIN 0.[address] EVANS
--- NOTE | 2018-02-26 04:35 | NUR ---
PT REPORTS NO RELIEF AFTER ZOFRAN PT REMAINS VOMITING SMALL AMOUNT OF BROWN EMMISIS ER DR EVANS NOTIFIED
--- NOTE | 2018-02-26 05:23 | NUR ---
pt agreed to be placed on bedside comode pt given bedside call light advised to use it to noitfy me when pt is finished, will send urine specimen at that time
[2018-02-26 05:59] LABS: BILIRUBIN NEGATIVE (NEGATIVE); BLOOD 2+ (NEGATIVE); CLARITY SL CLOUDY (CLEAR); COLOR YELLOW (YELLOW); GLUCOSE NEGATIVE (NEGATIVE); KETONE NEGATIVE (NEGATIVE); LEUKO ESTERASE NEGATIVE (NEGATIVE); NITRITE NEGATIVE (NEGATIVE); SPECIFIC GRAVITY 1.025 (1.005-1.030); UROBILINOGEN 0.2 E.U./dl (0.2-1.0)
--- NOTE | 2018-02-26 06:05 | NUR ---
ASSISTED PT BACK TO BED URINE SENT PT BED IN LOWEST POSITION BED RAILS UP X 2 CALL LAFLEUR IN REACH, PT HAD SMALL AMOUNT OF BROWN EMMISIS PRIOR TO 2ND ZOFRAN
[2018-02-26 06:11] LABS: BACTERIA 2+; RBC 16-20 rbc/hpf (0-2); WBC 0-2 wbc/hpf (0-5)
--- NOTE | 2018-02-26 06:21 | NUR ---
CRITICAL LAB, TROPONIN 0.122, NOTIFIED.
--- NOTE | 2018-02-26 08:37 | NUR ---
ASSISTED PT TO BS, PT STATES "I AM VERY WEAK."
--- NOTE | 2018-02-26 08:50 | NUR ---
ASSISTED PT BACK TO BED FROM [facility]. PT TOLERATED.
[2018-02-26] MEDS ORDERED: PERCOCET 5-3251 EACH PO (11:00)
--- NOTE | 2018-02-26 11:08 | NUR ---
[facility] 82, admitted to , under the services of GARY Mosley DO with a diagnosis of ABDM. PAIN, NAUSEA. Chief complaint is ABDM. PAIN, NAUSEA. Patient arrived via bed from ER. Monitor applied. Initial assessment completed. Vital signs taken and recorded. GARY MOSLEY DO notified of admission to the unit. Orders received. See assessment for past medical history, medications and allergies. Patient and/or family oriented to unit. [facility]. Clothing/patient valuable form completed. CLARIBEL MASCORRO
--- NOTE | 2018-02-26 13:49 | NUR ---
NOTIFIED DR. ORTEZ OF CRITICAL TROPONIN.
--- NOTE | 2018-02-26 15:42 | NUR ---
ZOFRAN GIVEN FOR C/O NAUSEA. WILL MONITOR.
--- NOTE | 2018-02-26 20:00 | NUR ---
AWAKE & ALERT RESTING IN BED. HEP LOCK INTACT TO RIGHT ANTECUBITAL. PT. VOICES NO C/O AT THIS TIME. CALL LIGHT WITHIN REACH. PT. GETS UP WITH THE ASSISTANCE OF A CANE. NO DISTRESS NOTED.
--- NOTE | 2018-02-26 23:15 | NUR ---
MEDICATED WITH AMBIEN PER PT'S REQUEST FOR SLEEP/M.D. ORDERS.
[2018-02-27] VITALS: BP 152/61
--- NOTE | 2018-02-27 01:30 | NUR ---
PT. SLEEPING; AMBIEN EFFECTIVE.
--- NOTE | 2018-02-27 04:00 | NUR ---
RESTING IN BED WITH EYES CLOSED. CALL LIGHT WITHIN REACH. RESPIRATIONS EASY ON ROOM AIR. NO DISTRESS NOTED.
[2018-02-27 06:25] LABS: BASO % 0.2 % (0.0-1.0); EOS # 0.1 10*3/uL (0.0-0.4); EOS % 0.6 % (1.0-4.0); HEMATOCRIT 30.9 % (37.0-47.0); HEMOGLOBIN 9.7 g/dl (12.0-16.0); LYMPH # 2.4 10*3/uL (1.3-4.4); LYMPH % 29.6 % (27.0-41.0); MEAN CELL VOLUME 92.8 fl (81.0-99.0); MEAN CORPUSCULAR HGB 29.1 pg (27.0-31.0); MEAN CORPUSCULAR HGB CONC 31.4 g/dl (33.0-37.0); MEAN PLATELET VOLUME 9.4 fl (9.6-12.3); MONO # 0.6 10*3/uL (0.1-1.0); MONO % 7.3 % (3.0-9.0); NEUT # 5.1 10*3/uL (2.3-7.9); NEUT % 62.1 % (47.0-73.0); PLATELET COUNT AUTOMATED 251 10*3/uL (130-400); RED BLOOD COUNT 3.33 10*6/uL (4.10-5.10); RED CELL DISTRI WIDTH 14.7 % (0-14.5); WHITE BLOOD COUNT 8.2 10*3/uL (4.8-10.8)
[2018-02-27 06:44] LABS: BUN 19 mg/dl (7-24); CHLORIDE 105 mmol/L (98-107); CHOLESTEROL 138 mg/dL (<200); CREATININE 0.89 mg/dL (0.55-1.02); HDL CHOLESTEROL 65 mg/dl (40-60); LDL CHOLESTEROL 46 mg/dL (9-159); PHOSPHOROUS 3.4 mg/dL (2.5-4.9); POTASSIUM 3.7 mmol/L (3.5-5.1); SODIUM 139 mmol/L (136-145); TRIGLYCERIDES 136 mg/dl (<150); VLDL CHOLESTEROL 27 mg/dL (6-40)
[2018-02-27 06:50] LABS: THYROID STIM HORMONE (HS) 0.536 uIU/ml (0.358-4.75)
[2018-02-27 08:00] VITALS: BP 162/84
--- NOTE | 2018-02-27 09:14 | NUR ---
Occupational Therapy evaluation completed on 4 with full eval to follow. Precautions include fall risk, IV UE, nausea/vomiting, limited oral intake. Patient is low complexity level 58472 via testing, evaluation and chart review. Recommend OT per POC and home with home health OT,PT. Thank you for this referral. July Mitchell OTR/l
[2018-02-27 09:44] LABS: VITAMIN D, 25-HYDROXY 12.9 ng/mL (30-100)
--- NOTE | 2018-02-27 09:45 | NUR ---
PHYSICAL THERAPY PAtient evalauted on 4, full evaluation to follow. Continue with PT as per plan of care with fall and cardiac precautions. Return to (i) living with home health RN and PT. PAtient is moderate complexity via chart review , tests and evaluation: [id number]. Thank you for this referral. Pilar Ochoa,PT
[2018-02-27 12:00] VITALS: BP 154/52
--- NOTE | 2018-02-27 12:30 | NUR ---
PER PATIENT, MEDICATION HAS BEEN EFFECTIVE. NO FURTHER COMPLAINTS AT THIS TIME.
--- NOTE | 2018-02-27 12:59 | NUR ---
HERE TO SEE PATIENT AND ORDERS OBTAINED FOR NEW MEDS & ECHO.
--- NOTE | 2018-02-27 13:40 | NUR ---
UNABLE TO VERIFY MEDICATION LIST DUE TO [facility] CLOSED TODAY FOR [facility] HOLIDAY.
[2018-02-27] MEDS ORDERED: CITALOPRAM20 MG PO (13:45)
[2018-02-27] MEDS ORDERED: LISINOPRIL30 MG PO (13:46)
[2018-02-27] MEDS ORDERED: BUSPAR15 MG PO (13:47)
[2018-02-27] MEDS ORDERED: ASPIRIN CHEWABL81 MG PO (13:47)
[2018-02-27] MEDS ORDERED: VISTARIL25 MG PO (13:48)
[2018-02-27 16:00] VITALS: BP 133/70
[2018-02-27 20:00] VITALS: BP 141/79
--- NOTE | 2018-02-27 20:08 | NUR ---
24 HR chart check completed.
[2018-02-28] VITALS: BP 127/48
[2018-02-28 07:45] LABS: BASO % 0.4 % (0.0-1.0); EOS # 0.2 10*3/uL (0.0-0.4); EOS % 2.3 % (1.0-4.0); HEMATOCRIT 31.1 % (37.0-47.0); HEMOGLOBIN 9.9 g/dl (12.0-16.0); LYMPH # 2.4 10*3/uL (1.3-4.4); LYMPH % 32.1 % (27.0-41.0); MEAN CELL VOLUME 93.7 fl (81.0-99.0); MEAN CORPUSCULAR HGB 29.8 pg (27.0-31.0); MEAN CORPUSCULAR HGB CONC 31.8 g/dl (33.0-37.0); MEAN PLATELET VOLUME 9.3 fl (9.6-12.3); MONO # 0.6 10*3/uL (0.1-1.0); MONO % 7.5 % (3.0-9.0); NEUT # 4.3 10*3/uL (2.3-7.9); NEUT % 57.4 % (47.0-73.0); PLATELET COUNT AUTOMATED 242 10*3/uL (130-400); RED BLOOD COUNT 3.32 10*6/uL (4.10-5.10); RED CELL DISTRI WIDTH 14.7 % (0-14.5); WHITE BLOOD COUNT 7.5 10*3/uL (4.8-10.8)
[2018-02-28 08:00] VITALS: BP 122/97
[2018-02-28 08:01] LABS: BUN 19 mg/dl (7-24); CHLORIDE 105 mmol/L (98-107); CREATININE 1.03 mg/dL (0.55-1.02); POTASSIUM 3.9 mmol/L (3.5-5.1); SODIUM 140 mmol/L (136-145)
--- NOTE | 2018-02-28 09:00 | NUR ---
Food Service in to talk to patient. Patient states lives at home with alone. There are no steps in the home. Physician: omar Pharmacy: [facility] Home health services: none at present Patient's level of ADLs: MINIMAL ASSIST Patient has working utilities: all working DME: rollator walker Follow-up physician's appointment after d/c: will be made by hospitalist nurse director upon discharge Does patient want to access PORTAL?: no Discharge plan discussed with patient, patient is a resident of [facility]. she states she uses a rollator walker for ambulation and is independent in adls. patient states she will be going back to independent living when medically stable. discussed with her VNA and she was receptive to this, given choice of companies, she chose [employer], stated she had used them in the past. will send referral to [facility] for when patient is medically stable for discharge. JENIFER SOLIS
--- NOTE | 2018-02-28 09:33 | NUR ---
PHYSICAL THERAPY Patient presented to therapy in supine with head of bed elevated and report of feeling much better. Patient agrees to therapy treatment. Patient was identified by name and . Patient performed supine to sitting at EOB with SBA. Patient transferred STS with SBA. Patient ambulated with rollalator walker for 150' x 1 with Close Supervision. Patient then sat in bedside chair and performed bilateral LE ther ex in all planes of movement 2 x 10 reps each for strengthening in order to improve patient's functional mobility. Patient was left in sitting position with call light within reach and LEs raised. NO CHAIR ALARM PRESENT. Patient is MOD I to and from restroom throught the day in room. Patient was 1:1 with this HOTEL ENGINEER for 22 minutes total. Patient is recommended to home with HH PT upon discharge. JAMILA DURON HOTEL ENGINEER
--- NOTE | 2018-02-28 10:25 | NUR ---
PATIENT COMPLAINING OF 8/10 PAIN IN BACK & STOMACH. MEDICATED WITH PO PERCOCET AT THIS TIME PER PRN ORDER. WILL MONITOR.
--- NOTE | 2018-02-28 11:07 | NUR ---
OT NOTE Pt was seen this A.M. 1:1 for 15 minute OT session. Upon arrival pt was sitting upright in recliner, pt identified by name and . Pt had no complaints at this time. Pt completed sit to stand transfer from chair level with [place]. Functional mobility completed into the bathroom with SBA and use of cane, pt was educated to slow down due to being impulsive increasing risk of falls. There she transferred on/off standard commode with SBA and use of grab bar. Clothing management and toilet hygiene all completed with distant supervision. Pt then stood sink side while washing her hands and face with SBA. Pt had no LOB throughout. Functional mobility completed back to recliner with SBA and use of cane, pt had poor carry over of slowing down. Pt was left sitting upright in recliner with call light in hand, tray table in place, and phone in reach. Continue with POC as able. JEREMY Fiore/Michael
[2018-02-28 12:00] VITALS: BP 141/46
--- NOTE | 2018-02-28 13:44 | NUR ---
Patient requested [facility] upon discharge. Received order, faxed clinicals for referral.
[2018-02-28 16:00] VITALS: BP 161/59
[2018-02-28] MEDS ORDERED: LOPRESSOR25 MG PO (16:31)
[2018-02-28] MEDS ORDERED: Zestril,Prinivi40 MG PO (16:31)
[2018-02-28] MEDS ORDERED: AMLODIPINE BESYL5 MG PO (16:31)
[2018-02-28] MEDS ORDERED: PROTONIX40 MG PO (16:33)
[2018-02-28] MEDS ORDERED: ZOFRAN4 MG PO (16:33)
[2018-02-28 20:00] VITALS: BP 130/52
--- NOTE | 2018-02-28 20:55 | NUR ---
PRN TYLENOL GIVEN FOR PT COMPLAINTS OF ANKLE PAIN RATING IT 5/10. CALL LIGHT WITHIN REACH, WILL MONITOR
--- NOTE | 2018-02-28 21:30 | NUR ---
PRN MEDICATION APPEARS EFFECTIVE, PT SLEEPING
[2018-02-28 22:00] VITALS: BP 130/52; BP 134/60; BP 163/54
--- NOTE | 2018-02-28 22:23 | NUR ---
DR. LATHAM CALLED AT THIS TIME. ASKED IF PATIENT WAS OK TO BE DISCHARGED RIGHT NOW, THEY WERE ONLY WAITING ON THE ECHO. THIS NURSE STATED SHE GAVE HER HER AMBIEN AN HOUR AGO AND PATIENT IS SLEEPING SOUNDLY. DR. LATHAM STATED THAT WAS OK AND SHE WILL BE DISCHRAGED TOMORROW BY DAYTEAM
--- NOTE | 2018-02-28 22:30 | NUR ---
DR. LATHAM CALLED AT THIS TIME AND ASKED IF THE PATIENT WOULD BE OK WITH BEING DISCHARGED AT THIS TIME. THIS NURSE STATD THAT SHE GAVE THE PATIENT HER AMBIEN ABOUT AN HOUR AGO AND THAT SHE IS SLEEPING. DR. LATHAM STATED THAT SHE WOULD HAVE THE DAY TEAM DISCHARGE HER THEN. THIS NURSE STATED THAT IF SHE PUT THE DISCHARGE PUT IN NOW, THAT I WOULD HAVE THE DISCHARGE DONE FOR DAYTURN. SHE STATED SHE WOULD JUST HAVE THE PRIMARY IN THE MORNING PUT THE ORDER IN
[2018-03-01] VITALS: BP 149/62; BP 163/59
--- NOTE | 2018-03-01 01:32 | NUR ---
PRN TYLENOL GIVEN FOR PT COMPLAINTS OF A HEADACHE 08/06. CALL LIGHT WITHIN REACH, WILL MONITOR
--- NOTE | 2018-03-01 02:15 | NUR ---
PRN MEDICATION APPEARS EFFECTIVE, PT SLEEPING
--- NOTE | 2018-03-01 04:00 | NUR ---
24 HR chart check completed.
[2018-03-01 08:00] VITALS: BP 126/86
--- NOTE | 2018-03-01 08:16 | NUR ---
Patient clinicals updates faxed to [facility] for review. Patient is ok to return when medically stable for discharge.
--- NOTE | 2018-03-01 09:00 | NUR ---
case management visits with patient, patient states she will be going back to [facility] independent living and have [facility], no other needs at this time
--- NOTE | 2018-03-01 09:26 | NUR ---
PHYSICAL THERAPY Patient presented to therapy in sitting position in bedside chair with report of possibly getting to go home today and no complaints or concerns. Patient transferred STS with SBA. Patient ambulated with ROLLALATOR WALKER and Close Supervision for 200' x 1. Patient transferred back to sitting in bedside chair with SBA. Patient was left in sitting position with call light within reach. Patient was 1:1 with this FIBREGLASS LAY UP WORKER for 12 minutes total. Patient recommended to PT upon discharge. JAMILA DURON FIBREGLASS LAY UP WORKER
--- NOTE | 2018-03-01 10:35 | NUR ---
PT MEDICATED WITH PERCOCET 1 TAB FOR C/O CHRONIC BACK PAIN.
--- NOTE | 2018-03-01 12:01 | NUR ---
PT DISCHARGED AT THIS TIME WITH [facility] TO HOME.
--- NOTE | 2018-03-01 14:52 | NUR ---
PHYSICAL THERAPY CO-SIGN I approve of the Phyical Therapy notes written above. ROBERT LEMON PT
--- NOTE | 2018-03-01 15:57 | NUR ---
OCCUPATIONAL THERAPY CO-SIGN I approve of the Occupational Therapy notes written above. MAGDALENA PIMENTEL OTR/Michael
== END 2018-03-01 12:01 | disposition home health service (06) | DRG 871 ==
LOC: ED 02:32 → EDHOLD 06:26 → 4E 06:26 → EDHOLD 07:16 → 4E 10:13
PROVIDERS: Emergency Medicine; Internal Medicine; Student in an Organized Health Care Education/Training Program; ADMIT Internal Medicine
DX: A41.9 Sepsis, unspecified organism (principal); N17.0 Acute kidney failure with tubular necrosis; I16.1 Hypertensive emergency; I24.8 Other forms of acute ischemic heart disease; I50.32 Chronic diastolic (congestive) heart failure; Z68.42 Body mass index [BMI] 45.0-49.9, adult; R65.20 Severe sepsis without septic shock; K52.9 Noninfective gastroenteritis and colitis, unspecified; I11.0 Hypertensive heart disease with heart failure; M16.12 Unilateral primary osteoarthritis, left hip; F41.9 Anxiety disorder, unspecified; K57.90 Diverticulosis of intestine, part unspecified, without perforation or abscess without bleeding; F32.9 Major depressive disorder, single episode, unspecified; D64.9 Anemia, unspecified; R73.9 Hyperglycemia, unspecified; R31.1 Benign essential microscopic hematuria; E55.9 Vitamin D deficiency, unspecified; E66.01 Morbid (severe) obesity due to excess calories; Z88.8 Allergy status to other drugs, medicaments and biological substances; Z79.899 Other long term (current) drug therapy; Z86.718 Personal history of other venous thrombosis and embolism; Z82.49 Family history of ischemic heart disease and other diseases of the circulatory system; Z90.49 Acquired absence of other specified parts of digestive tract; Z85.038 Personal history of other malignant neoplasm of large intestine; Z87.891 Personal history of nicotine dependence

== ENCOUNTER 2019-03-02 18:49 | Emergency (ER) | payer MEDICARE ==
[~2019-03-02 18:49] MED LIST changes: +AMLODIPINE BESYL5 MG PO; +ASPIRIN CHEWABL81 MG PO; +BUSPAR15 MG PO; +CITALOPRAM20 MG PO; +LISINOPRIL30 MG PO; +LOPRESSOR25 MG PO; +PERCOCET 5-3251 EACH PO; +VISTARIL25 MG PO; +ZOFRAN4 MG PO; +Zestril,Prinivi40 MG PO
[2019-03-02 19:31] LABS: BASO % 0.2 % (0.0-1.0); EOS # 0.2 10*3/uL (0.0-0.4); EOS % 2.2 % (1.0-4.0); HEMATOCRIT 33.9 % (37.0-47.0); HEMOGLOBIN 10.9 g/dl (12.0-16.0); LYMPH # 2.7 10*3/uL (1.3-4.4); LYMPH % 32.6 % (27.0-41.0); MEAN CELL VOLUME 96.9 fl (81.0-99.0); MEAN CORPUSCULAR HGB 31.1 pg (27.0-31.0); MEAN CORPUSCULAR HGB CONC 32.2 g/dl (33.0-37.0); MEAN PLATELET VOLUME 9.4 fl (9.6-12.3); MONO # 0.6 10*3/uL (0.1-1.0); MONO % 6.9 % (3.0-9.0); NEUT # 4.8 10*3/uL (2.3-7.9); NEUT % 57.9 % (47.0-73.0); PLATELET COUNT AUTOMATED 261 10*3/uL (130-400); RED CELL DISTRI WIDTH 13.2 % (0-14.5); WHITE BLOOD COUNT 8.4 10*3/uL (4.8-10.8)
[2019-03-02 19:52] LABS: ALBUMIN 3.5 gm/dl (3.1-4.5); ALKALINE PHOSPHATASE 90 U/L (45-117); BUN 19 mg/dl (7-24); CHLORIDE 110 mmol/L (98-107); CREATININE 1.18 mg/dL (0.55-1.02); POTASSIUM 4.7 mmol/L (3.5-5.1); SGPT/ALT 13 U/L (12-78); SODIUM 140 mmol/L (136-145); TOTAL PROTEIN 7.4 gm/dL (6.4-8.2)
[2019-03-02 19:55] LABS: SGOT/AST 15 IU/L (3-35)
[2019-03-02 19:58] LABS: TROPONIN I < 0.015 ng/ml (<0.045)
[2019-03-02 20:29] VITALS: BP 150/70
== END 2019-03-02 20:55 | disposition home or self-care (01) ==
LOC: ED 18:49
PROVIDERS: Nurse Practitioner Family
DX: I11.0 Hypertensive heart disease with heart failure (principal); I50.9 Heart failure, unspecified; K21.9 Gastro-esophageal reflux disease without esophagitis; E78.00 Pure hypercholesterolemia, unspecified; Z88.8 Allergy status to other drugs, medicaments and biological substances; Z79.899 Other long term (current) drug therapy; Z79.82 Long term (current) use of aspirin; Z87.891 Personal history of nicotine dependence

== ENCOUNTER → 2019-05-08 | Day surgery (SDC) | payer MEDICARE ==
[~2019-05-08] VITALS: Ht 160 cm; Wt 99.8 kg
[2019-05-08 10:01] VITALS: BP 171/53
[2019-05-08 11:39] VITALS: BP 141/63
[2019-05-08 11:54] VITALS: BP 162/81
[2019-05-08 12:09] VITALS: BP 169/72
== END | disposition home or self-care (01) ==
LOC: SDC 05-03 12:30
DX: H25.812 Combined forms of age-related cataract, left eye (principal); I10 Essential (primary) hypertension; K21.9 Gastro-esophageal reflux disease without esophagitis; F41.9 Anxiety disorder, unspecified; F32.9 Major depressive disorder, single episode, unspecified; E78.5 Hyperlipidemia, unspecified; E66.01 Morbid (severe) obesity due to excess calories; Z68.38 Body mass index [BMI] 38.0-38.9, adult; Z98.890 Other specified postprocedural states; Z85.038 Personal history of other malignant neoplasm of large intestine

== ENCOUNTER → 2019-07-23 | Outpatient (CLI) | payer MEDICARE | END | disposition home or self-care (01) | LOC: LAB 10:25 | DX: H53.19 Other subjective visual disturbances (principal) ==

== ENCOUNTER 2021-09-30 16:17 | Emergency (ER) | payer MEDICARE ==
[~2021-09-30] VITALS: Ht 162.5 cm; Wt 113.4 kg
[2021-09-30 16:27] VITALS: BP 154/51
[2021-09-30] MEDS ORDERED: NAPROSYN500 MG PO (19:06)
== END 2021-09-30 19:08 | disposition home or self-care (01) ==
LOC: ED 16:17
DX: M25.551 Pain in right hip (principal); Z88.8 Allergy status to other drugs, medicaments and biological substances; Z79.899 Other long term (current) drug therapy; Z90.49 Acquired absence of other specified parts of digestive tract; Z90.89 Acquired absence of other organs; Z98.890 Other specified postprocedural states; Z87.891 Personal history of nicotine dependence